=== PATIENT | male | born 1945 | race Caucasian/White ===

== ENCOUNTER 2017-12-26 06:08 | Inpatient (IN) ==
[2017-12-26] MEDS ORDERED: Vancomycin 1,250 MG in D5% in Water 250 ML IVPB ONE (06:25)
[2017-12-26] MEDS ORDERED: Ringers Solution, Lactated 1,000 ML IVC SCH ×2 (06:30→10:12)
--- NOTE | 2017-12-26 07:02 | History & Physical Report ---
Date of Encounter: 12/26/17 Time of Encounter: 07:02 24 Hour HP Update - Instructions Instructions: If the History and Physical is less than 30 days old and was completed prior to A.M. admission and or procedure and has NOT been updated on calendar day of procedure please complete this update prior to performing procedure. - Update Patient reports changes in Medical Condition: No Changes in examination, assessment, or condition: No Changes in Medication: No Preop tests/diagnostics Reviewed: Yes Surgery Remains Indicated: Yes Consent for Planned Operative Procedure(s) Verified: Yes
[2017-12-26] MEDS ORDERED: Pregabalin 75 MG CAPSULE PO ONE (07:06)
[2017-12-26] MEDS ORDERED: Famotidine 20 MG/2 ML VIAL IVP ONE (07:06)
--- NOTE | 2017-12-26 07:10 | Anesthesia Evaluation PreOp ---
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 Other Medical History: Diabetes Type II Anesthesia History: No Prior Anesthetic Complications Alcohol Use: none Drug use: none Medications and Allergies Albuterol Sulfate [Proventil Hfa] 2 puff IH Q4H PRN 08/13/15 [History] Amlodipine [Amlodipine Besylate] 10 mg PO HS 08/13/15 [History] Gabapentin [Neurontin] 600 mg PO BID 08/13/15 [History] Hydrochlorothiazide 25 mg PO DAILY 08/13/15 [History] Lisinopril [Zestril] 20 mg PO DAILY 08/13/15 [History] Metoprolol XL (24 HR) Succ [Toprol XL] 50 mg PO DAILY 08/13/15 [History] Simvastatin [Zocor] 20 mg PO DAILY 08/13/15 [History] Trospium Chloride 20 mg PO HS 08/13/15 [History] Doxazosin Mesylate [Cardura] 2 mg PO DAILY 03/07/17 [History] Esomeprazole Magnesium [Nexium] 40 mg PO DAILY 03/07/17 [History] 3 Allergy/AdvReac Type Severity Reaction Status Date / Time Penicillins AdvReac Hypertensio Verified 12/26/17 07:07 n - Meds/Allergy Pre-op Review Medications Reviewed: Yes Allergies Reviewed: Yes Beta Blockers on Current Med List: Yes (Took Metoprolol last night 1900) Anesthesia Results - Labs Laboratory Tests 03/07/17 12/23/17 12/23/17 13:42 11:55 11:55 Hgb 14.7 POC Hgb 11.5 L Plt Count 175 Sodium 141 Potassium 3.5 BUN 19 Creatinine 1.49 H - Imaging EKG: report reviewed (SR) Additional studies: ECHO LVEF 60% Anesthesia Exam O2 Sat Height 1.68 m Height 1.68 m Height 1.68 m Weight 82.554 kg Weight 82.554 kg Weight 82.554 kg O2 Sat by Pulse Oximetry 99 Vital Signs Temp Pulse Resp BP Pulse Ox 98.0 F 60 18 154/82 99 12/26/17 06:22 12/26/17 06:22 12/26/17 06:22 12/26/17 06:22 12/26/17 06:22 Height: 5'6 Weight: 182 lbs NPO (# of Hours): MN Pain Scale: 0 - HEENT Pupil (Motor): Pupils equal, EOMI Mallampati: II Oral Opening: Greater than 3 - MIXING MACHINE TENDER LOC: Oriented MIXING MACHINE TENDER Motor: Normal RUE, Normal LUE, Normal RLE, Normal LLE, Normal Face MIXING MACHINE TENDER Sensory: Normal: RUE, LUE, RLE, LLE, Face - Cardiac Rhythm: Regular Murmur: None JVD: No Carotid Bruit: No - Pulmonary Breath Sounds: bilateral Clear Respiratory Effort: Symmetrical Anesthesia Assess/Plan ASA Score: 3 (CAD HTN DM) Modified Putnam Scale for Level of Consciousness: Cooperative, oriented, and tranquil Anesthetic Plan: General, Regional Monitoring Plan: Standard Monitors Recovery Plan: PACU (Discussed GA and RA, agrees to proceed)
[2017-12-26] MEDS ORDERED: *HR* Ropivacaine/PF 0.5% 20 ML VIAL ONE (07:25)
[2017-12-26] MEDS ORDERED: Tetracaine/PF 20 MG/2 ML AMPUL ONE (07:25)
[2017-12-26] MEDS ORDERED: Clindamycin 900 MG/50 ML 900 MG/50 ML IV.SOLN IVPB ONE ×2 (07:50→08:32)
--- NOTE | 2017-12-26 08:04 | Anesthesia Procedures ---
Date of Encounter: 12/26/17 Time of Encounter: 07:10 Procedures: Anesthesia - Nerve Block Procedure Date: 12/26/17 Time: 07:30 Pre-op Diagnosis: Rt Shoulder Arthropathy Surgical Procedure: Rt Reverse Ball Total Shoulder Replacement Checklist: Correct Patient Identifier Correct side: Right Blood Thinner: No Monitor Applied: EKG, BP, Pulse Oximetry Supplemental Oxygen via Nasal Cannula (L/min): 2 Sedation: Versed (mg): 2 Sedation: Fentanyl (mcg): 100 Indication: Post Op Analgesia Pre-op Neuro Deficits: No Block Type: Supraclavicular, Other (SCPB) Catheter placed: No Depth at skin (cm): 2 Sterile Technique: Yes Ultrasound used: Yes Anatomy identified: Yes Visual spread of Local: Yes Neuro Stimulation: No Blood on Needle Aspiration: No Smooth Injection of Local: Yes Pain with Injection of Local: No Prep: Chlorhexadine Needle: 22 x 50 mm Stimuplex Local: Tetracaine (40mg), Ropivacaine (40cc 0.5%) Volume (cc): 40 Number of Attempts: 1 Complications: None/effective block Vitals: Vital Signs/O2 Sat/Glucose, Most Current Temp Pulse Resp BP Pulse Ox 12/26/17 07:42 56 18 127/69 97 12/26/17 07:31 83 18 156/69 97 12/26/17 06:22 98.0 F 60 18 154/82 99
[2017-12-26] MEDS ORDERED: Lidocaine -MPF 2% 2 ML VIAL ONE (08:27)
[2017-12-26] MEDS ORDERED: *HR* FentaNYL (PF) 100 MCG/2 ML VIAL ONE (08:27)
[2017-12-26] MEDS ORDERED: Lidocaine -MPF 4% 5 ML AMPUL ONE (08:27)
[2017-12-26] MEDS ORDERED: *HR* Succinylcholine 200 MG/10 ML VIAL IVP ONE (08:27)
[2017-12-26] MEDS ORDERED: Ondansetron 4 MG/2 ML VIAL ONE (08:27)
[2017-12-26] MEDS ORDERED: Dexamethasone 4 MG/ML VIAL ONE (08:27)
[2017-12-26] MEDS ORDERED: *HR* Midazolam HCl 2 MG/2 ML VIAL ONE (08:27)
[2017-12-26] MEDS ORDERED: EPHEDrine 50 MG/ML VIAL ONE (08:27)
[2017-12-26] MEDS ORDERED: *HR* Propofol 200 MG/20 ML VIAL IVP ONE (08:27)
[2017-12-26] MEDS ORDERED: *HR* Rocuronium Bromide 50 MG/5 ML VIAL ONE (08:27)
[2017-12-26] MEDS ORDERED: *HR* Meperidine 25 MG/ML SYRINGE IVP PRN (08:32)
[2017-12-26] MEDS ORDERED: *HR* Labetalol 20 MG/4 ML SYRINGE IVP PRN (08:32)
[2017-12-26] MEDS ORDERED: *HR* Promethazine 25 MG/ML VIAL IVP PRN (08:32)
[2017-12-26] MEDS ORDERED: Ondansetron 4 MG/2 ML VIAL IVP ONE (08:32)
[2017-12-26] MEDS ORDERED: *HR* Metoprolol 5 MG/5 ML VIAL IVP ONE (09:36)
--- NOTE | 2017-12-26 09:43 | Physician Discharge Referral ---
Home Health/Hosp Referral Info Transfer to: Home Health - Respiratory Orders Smoking Cessation: Smoking cessation has been advised. For more information, call the [place] Tobacco Quit Line at 5-833-TWRP-NOW. - Diet/Nutrition Diet/Nutrition Orders: Regular - Activity Activity Orders: Up ad zahira - Services Needed Following services are medically necessary services: Physical Therapy, Occupational Therapy Other Treatments: POST-OPERATIVE INSTRUCTIONS OPEN SHOULDER SURGERY Your recovery after shoulder surgery can take 6-9 months to fully recover. It takes 12 weeks for the repair to fully heal, so it is very important to follow all precautions after surgery as directed. These instructions are intended to help you control swelling and pain, and to allow your shoulder and repaired tissues to heal. These instructions are a general guideline, because no patient or procedure is the same. If needed, your surgeon will give you further specific instructions. SLING You are required to wear your sling at all times (including sleeping) until your follow up appointment. This is necessary to protect your repair. You may remove it to work on your hand, wrist, and elbow exercises, for physical therapy , for getting dressed, and for hygiene. Otherwise, it should remain on at all times. After your follow up appointment, if you are comfortable you may remove the sling. ICE It is recommended to ice your shoulder for 20 minutes per hour using an ice pack, Cryo Cuff if provided, or a bag of frozen peas. Ice can be especially helpful for the first several days after surgery. It can then be used as needed for pain and swelling. PAIN BLOCK/PAIN CATHETER The pain block/catheter is intended for pain relief and can last for up to 48 hours. During this time, you will not experience pain and will not be able to move your hand and fingers. It will give you the sensation of your arm being paralyzed. THIS IS TEMPORARY UNTIL THE BLOCK WEARS OFF. It is recommended that you start your pain medication even though you are getting pain relief from the block. It is more difficult to control the pain once the block wears off, then to keep a constant level of the pain medication in your system. For further questions regarding the pain catheter or block, please refer to the pain pump handout given to you from surgery or contact the anesthesia department as directed in the handout. MEDICATIONS You should resume all of your normal medications after shoulder surgery. If you are on blood thinners, these should be discussed with our team to decide on a date to resume them (typically the day after surgery). You will be given prescriptions for pain medications: o Fill the pain medications immediately and begin taking the medications before your nerve block wears off. You are encouraged to take the pain medications as directed on the prescription, and on a regular schedule for the first 3-4 days after surgery. o Do not let the pain get "ahead" of the pain medications since then it will be very difficult for you to get adequate pain control. o Even with the nerve block from surgery, it is recommended that you start on the pain medications after surgery to avoid the block wearing off without having pain medications in your system. o As the pain decreases, you may decrease the pain medication and switch to extra strength Tylenol if needed. o Avoid driving and consuming alcohol while taking pain medication. o Common side effects of pain medication are nausea, drowsiness, and constipation. Consider taking medication with food, and also consider using an [id number] stool softener. DRESSING You may shower and get your dressing wet 3 days after surgery, as long as there is no drainage coming from the incision. If the dressing is leaking, remove it and apply a clean, dry gauze to your shoulder. Avoid letting the shower stream hit the incisions directly. DO NOT scrub incisions or soak under water (bathtub, swimming pool or hot tub etc.) Pat the shoulder dry and then re-apply the dressing. If you have drainage more than 5 days after surgery, please contact our office for advice. SLEEPING You may find it more comfortable to sleep in a semi-reclined position (ie. recliner type chair or propped up on pillows) following shoulder surgery. You may return to sleeping in your bed whenever it feels comfortable to do so. EXERCISES You may come out of your sling 3-4 times/day to move your elbow, wrist, and hand and fingers and do shoulder exercises provided. Remember no reaching behind you for 6 weeks. FOLLOW UP APPOINTMENTS Your first follow up appointment is generally 10-14 days after surgery. Please refer to your preoperative packet for the date and time or contact the office after surgery to confirm this appointment. Wound care, pain management, and a review of your surgical procedure will be discussed at your first post-operative appointment Additional appointments are scheduled according to the type of surgery that you had and how you are progressing. PRECAUTIONS After anesthesia, rest for 24 hours. General anesthesia may cause a sore throat, jaw discomfort or muscle aches. These symptoms can last for one or two days. Do not drive, drink alcoholic beverages or make any important or legal decisions during this time. Avoid placing arm behind back (tucking in shirt, putting on belt), and do not lean on affected arm or use arm to push up from a seated or laying position. A good general rule is to keep your arm where you can see it. Keep your first few meals after surgery light and drink plenty of fluids, and some people are nauseas after surgery. Smoking increases your risk of infection and can delay healing times. If you smoke, you are encouraged to quit, cut back or at least quit smoking during the post-operative period. Pain medications are important for the first few days after surgery to treat postoperative pain. Addiction, tolerance, and side effects are a big concern. Decrease the pain medications as soon as you can. This is typically after the first few days. Most patients require narcotic pain medications only for the first few weeks after surgery (even large procedures). Prolonged use increases the risk of problems with these medications. NOTIFY THE OFFICE IMMEDIATELY, IF YOU DEVELOP ANY OF THE FOLLOWING: Increased redness or swelling over the incision area Incision area is warm or hot to touch Incision has foul smelling drainage Relentless pain, nausea, vomiting, bleeding or drainage Severe calf pain or chest pain You develop a fever greater than 101.4 more than 48 hours after surgery If you having an emergency that requires immediate attention go to the nearest emergency room or call 911. Please contact the office with any other questions or concerns that you may have regarding your surgery. - Transfer Medications Home Medications: Albuterol Sulfate [Proventil Hfa] 2 puff IH Q4H PRN 08/13/15 [History] Gabapentin [Neurontin] 600 mg PO BID 08/13/15 [History] Hydrochlorothiazide 25 mg PO DAILY 08/13/15 [History] Simvastatin [Zocor] 20 mg PO HS 08/13/15 [History] Trospium Chloride 20 mg PO HS 08/13/15 [History] Doxazosin Mesylate [Cardura] 2 mg PO HS 03/07/17 [History] Cholecalciferol (D-3) [Vitamin D] 5,000 unit PO DAILY 12/26/17 [History] Lisinopril [Zestril] 10 mg PO DAILY 12/26/17 [History] Metoprolol Succinate [Toprol Xl] 25 mg PO HS 12/26/17 [History] OxyCODONE/APAP 5/325 [Percocet 5/325 MG] 1 each PO Q6HR PRN 12/26/17 [History] Ranitidine HCl [Zantac] 150 mg PO BID PRN 12/26/17 [History] amLODIPine [Norvasc] 5 mg PO DAILY 12/26/17 [History] Allergies/Adverse Reactions: 3 Allergy/AdvReac Type Severity Reaction Status Date / Time Penicillins AdvReac Hypertensio Verified 12/26/17 07:07 n Certification: Further, I certify that my clinical findings support that this patient is homebound (i.e. absences from home require considerable and taxing effort and are for medical reasons or voodoo services or infrequently or short duration when for other reasons) because: Homebound Reason: Patient requires assistance of a person or device to safely leave home Attestation: My signature below is to certify that this patient is under my care and that I, or nurse practitioner, or a physician's assistant boys track coach working with me, has a face-to -face encounter with this patient.
--- NOTE | 2017-12-26 09:48 | Orthopedic Operative Note ---
Date of procedure: 12/26/17 Pre-op diagnosis: Right shoulder cuff tear arthropathy Post-op diagnosis: same Procedure: 1. Right reverse TSA with autograft glenoid bone graft 2. Right open biceps tenodesis Indications: This is a 72 yo M who has long history of right shoulder pain with arthritis and cuff tear arthropathy confirmed on radiographs. The patient has failed conservative treatment including anti-inflammatories therapy and injections. The patient has elected for a right reverse shoulder replacement. The risks and benefits of the procedure were fully explained to the patient. These risks include, but are not limited to, the risk of infection, neurovascular injury, continued pain and stiffness of the shoulder, need for further surgery, DVT, PE, loss of limb and loss of life. The patient did understand all of these risks and wishes to proceed. Informed consent was then obtained. Operative procedure: The patient was brought back to the OR suite by the anesthesia staff. The patient was then placed supine on the operating table and all bony prominences were padded. The anesthesiologist then performed successful general anesthetic for the remainder of the case. The head, neck and airway were secured and protected by anesthesia. The bed was elevated about 30 degrees. The right upper extremity was then prepped and draped in the normal sterile orthopedic fashion and placed in the Trimano arm whitt. Preoperative antibiotics were then given prior to incision. A timeout was performed confirming the correct patient, site and side, procedure to be performed and any allergies. All were in agree and we did proceed. A standard deltopectoral approach was performed. We dissected down through the skin coagulating any bleeders were encountered. The cephalic vein was then identified and taken laterally with the deltoid. Adhesions were cleared from underneath the deltoid and a brown retractor was placed. The interval between the deltoid and pectoralis was then developed and kolbel retractor was placed. A Darrach retractor was then placed under the acromion. The biceps tendon was exposed and identified, and then released proximally. Soft tissue tenodesis of the remaining biceps was then performed. The lateral border of the conjoined tendon was then identified and a subscapularis release was performed. The subscapularis was tagged for retraction and was released from the rotator interval down the anterior aspect of the humerus. The capsule was then released from the anterior aspect of the humerus around inferiorly to the back of the humerus. The humerus was subluxed anteriorly and any osteophytes were removed. The supraspinatus was not intact. A guide pin was placed in the center of the humeral head, this was reamed flat and then a circular reamer was used to obtain bone graft for the glenoid. A humeral osteotomy was then performed, and the humerus was sounded and broached to the appropriate size 4. Attention was then turned to the glenoid. The humerus was subluxed posteriorly and retractors were placed on the anterior and posterior aspects of the glenoid. A 360 degree release of the subscapularis was performed, and the axillary nerve was palpated and protected throughout the case. Labral debridement was then performed. There was significant superior wear as noted on the CT scan. A central guide pin was placed in the appropriate position on the glenoid. Central drill hole was drilled and the glenoid was then reamed in accordance with the aequalis reverse shoulder system. The bone autograft was then fashioned to provide 7 mm of superior bone graft and 3 mm inferior bone graft on the back side of the glenoid baseplate. The glenoid baseplate was impacted in place and 4 peripheral drill holes were drilled and filled with the appropriate length screws, 2 in compression, 2 locking. The final glenosphere was then impacted and the glenoid sphere screw was tightened in place. Attention was turned back to the humerus. The humerus was subluxed back anteriorly and a trial humeral stem, tray and poly trials were placed. Trial humeral reverse trays and poly were then placed sequentially until the most appropriate size was identified. The trial size +9 poly was tested and had excellent range of motion, and stability was verified. The final component was assembled on the back table and then inserted, and the shoulder was reduced. Again the shoulder was taken through range of motion and there was excellent range of motion and stability. The wound was then copiously irrigated. The deltopectoral interval was tagged with 2-0 surgilon, and the incision was closed with 2-0 stratafix deep and a running 3-0 stratafix subcuticular. Sterile dressing was placed, the arm was placed in a sling and the patient was taken to the PACU in stable condition. There were no complications during the case. Post op plan: The patient will go into the reverse shoulder protocol. Implants: Tornier aequalis flex 4B PTC stem low offset +0 tray, 39+9 mm poly 25 mm long post bio RSA baseplate 39x25 glenosphere Complications: none Anesthesia: GETA, regional Surgeon: Eliazar Mayo Was there an resident assistant cna present: No Estimated blood loss (cc): 100 Condition: stable Disposition: PACU
--- NOTE | 2017-12-26 09:52 | Anesthesia Evaluation Post Op ---
Date of Encounter: 12/26/17 Time of Encounter: 10:00 - Vital Signs Vital Signs: Vital Signs/O2 Sat/Glucose, Most Current Temp Pulse Resp BP Pulse Ox 12/26/17 07:42 56 18 127/69 97 12/26/17 07:31 83 18 156/69 97 12/26/17 06:22 98.0 F 60 18 154/82 99 - Lungs Lungs: Clear Ascult./Percussion - Airway Airway: Non-obstructed - Cardiovascular Regular Rate - Mental Status Mental Status: Alert & Oriented, Answers Appropriately - Pain Pain Scale: 0 - Nausea Vomiting Nausea Vomiting: Not Present - Hydration Hydration: Ice chips - Discharge PostOp Status: Transfer Patient to floor
[2017-12-26] MEDS ORDERED: Acetaminophen 325 MG TABLET PO PRN (10:12)
[2017-12-26] MEDS ORDERED: Famotidine 20 MG TABLET PO SCH (10:12)
[2017-12-26] MEDS ORDERED: Ketorolac 15 MG/ML VIAL IVP PRN (10:12)
[2017-12-26] MEDS ORDERED: Naloxone 0.4 MG/ML INJ IVP PRN (10:12)
[2017-12-26] MEDS ORDERED: MOM Conc 10 ML UD.LIQ PO PRN (10:12)
[2017-12-26] MEDS ORDERED: *HR* OxyCODONE Immed Rel 5 MG TABLET PO PRN (10:12)
[2017-12-26] MEDS ORDERED: *HR* HYDROcodone/Acet 5/325 mg TABLET PO PRN (10:12)
[2017-12-26] MEDS ORDERED: Ondansetron 4 MG/2 ML VIAL IVP PRN (10:12)
[2017-12-26] MEDS ORDERED: Sennosides 8.6 MG TABLET PO PRN (10:12)
[2017-12-26] MEDS ORDERED: Temazepam 15 MG CAPSULE PO PRN (10:12)
[2017-12-26 12:49] VITALS: BP 124/77
[2017-12-26] MEDS ORDERED: Clindamycin 900 MG/50 ML 900 MG/50 ML IV.SOLN IVPB SCH (16:00)
[2017-12-26] MEDS ORDERED: Metoprolol XL (24 HR) Succ 25 MG TAB.ER.24H PO SCH (21:00)
[2017-12-26] MEDS ORDERED: Gabapentin 300 MG CAPSULE PO SCH (21:00)
[2017-12-27] MEDS ORDERED: hydroCHLOROthiazide 25 MG TABLET PO SCH (09:00)
[2017-12-27] MEDS ORDERED: amLODIPine 5 MG TABLET PO SCH (09:00)
[2017-12-27] MEDS ORDERED: Cholecalciferol (D-3) 1,000 UNIT TABLET PO SCH (09:00)
--- NOTE | 2018-01-01 17:19 | Discharge Summary ---
Date of Encounter: 01/01/18 Time of Encounter: 17:18 - Discharge Medications Home Medications: Albuterol Sulfate [Proventil Hfa] 2 puff IH Q4H PRN 08/13/15 [History] Gabapentin [Neurontin] 600 mg PO BID 08/13/15 [History] Hydrochlorothiazide 25 mg PO DAILY 08/13/15 [History] Simvastatin [Zocor] 20 mg PO HS 08/13/15 [History] Trospium Chloride 20 mg PO HS 08/13/15 [History] Doxazosin Mesylate [Cardura] 2 mg PO HS 03/07/17 [History] Cholecalciferol (D-3) [Vitamin D] 5,000 unit PO DAILY 12/26/17 [History] Lisinopril [Zestril] 10 mg PO DAILY 12/26/17 [History] Metoprolol Succinate [Toprol Xl] 25 mg PO HS 12/26/17 [History] OxyCODONE/APAP 5/325 [Percocet 5/325 MG] 1 each PO Q6HR PRN 12/26/17 [History] Ranitidine HCl [Zantac] 150 mg PO BID PRN 12/26/17 [History] amLODIPine [Norvasc] 5 mg PO DAILY 12/26/17 [History] Allergies/Adverse Reactions: 3 Allergy/AdvReac Type Severity Reaction Status Date / Time Penicillins AdvReac Hypertensio Verified 12/26/17 07:07 n - Impressions ITS Impressions Shoulder X-Ray 12/26/17 09:35 IMPRESSION: 1. Status post right shoulder arthroplasty without immediate complication. D/ / 12/26/2017 10:26:30 Shania Valentin MD / [email or web address] Interpreting Provider: Shania Valentin MD Date of admission: 12/26/17 10:11 Primary care physician: Su Lanier, Consults: 12/26/17 10:12 Consult to Occupational Therapy [CONS] Routine Comment: post shoulder surgery Reason for Consult: post shoulder surgery Consult to Orthopedic Navigator [CONS] [CONS] Routine Consult to Physical Therapy [CONS] Routine Comment: post shoulder surgery Reason for Consult: post shoulder surgery RT Post Op Consult [CONS] Routine - Patient Status Disposition: Home, Self-Care Condition: Good Functional capacity at discharge: independent ambulation Overall status at discharge: patient is progressing back to baseline - Discharge Instructions Follow Up With: Su Lanier CNP [Primary Care Provider] - Eliazar Mayo MD [Non-Partnered Physician] - 01/07/18 2:30 pm Additional Instructions: Discharge Instructions: Total Shoulder Please call [facility] ([phone]), your Primary Care Physician, or report to the Emergency Room if you have any of the following symptoms: Nausea, vomiting, fever greater that 101.5, swelling, chest pain, shortness of breath, increased pain/redness/drainage/odor for your incision site, numbness/ tingling, or any other concerning symptoms. ACTIVITY: Always keep your arm in the sling. Do not raise your arm away from your body. Do not use your arm to help with getting in or out of bed. No weight bearing permitted. Only perform those exercises given to you by your therapist. MEDICATIONS: Upon discharge resume your home medications. Take all the medications as prescribed. Take a stool softener if taking narcotic pain medications. Stool softeners are only effective if you drink enough fluids. Drink 6-8 glass of water or fluids a day, unless this is not allowed for another health problem. Despite using stool softeners, if you haven't had a bowel movement in 3 days, please switch to a gentle laxative. Gentle laxatives are sold over the counter. You should have a bowel movement within 24 hours, if not call the office. You will be discharged from the hospital with a prescription for pain medication. You are encouraged to decrease the use of narcotic pain medication as tolerated. Should you require a refill, please call the office. [facility] prescribes narcotic pain medication for only 4-6 weeks after surgery. If you require pain medication beyond this time period, you may be referred to your Primary Care Physician or to the Pain Clinic for further evaluation. Plan ahead for refills on pain medication as many narcotics either need to be picked up at the office or mailed. It is best to call 48-72 hours in advance of needing a prescription refill so you don't run out of medication. To help control the post-operative pain, you may take NSAIDs (Aleve,Advil, Motrin, Ibuprofen, Naprosyn) or Tylenol as prescribed on the bottle in addition to the pain medication. WOUND CARE: Leave the dressing on for 7-10 days. You may change the dressing if it becomes saturated greater than 50%. Do not get the dressing wet at anytime. Wash your hands with antibacterial soap, rinse and dry prior to any wound care. If you have juan diego the visiting nurse or rehab facility can remove the stapes 10-14 days after surgery and place steri-strips across the wound. Leave the steri-strips in place until they fall off on their own. You may let water from the shower run on top of the steri-strips. If you do not have a visiting nurse or rehab facility, you will need to return to the office at 10-14 days for the juan diego to be removed. If you have itching or redness around the dressing call the office. FOLLOW-UP: Please follow up with your surgeon in the orthopedic clinic, as scheduled - Diet and Activity Activity: as per physical therapy Diet: advance to your usual diet - Hospital Course Hospital course: Mr. Kramer is a 72 year old male admitted to the floor following a right reverse TSA. He did well post op with pain well controlled and after being seen by PT was discharged home same day. - Time Spent with Patient Total time spent providing and/or coordinating discharge services: - VTE Documentation of Mechanical Device: Venous foot pump, device
== END 2017-12-26 16:57 | disposition home or self-care (01) | DRG 483 ==
LOC: SAMDAY 06:08 → 3NENU 10:11
PROVIDERS: ADMIT Orthopaedic Surgery Sports Medicine; ATTEND Orthopaedic Surgery Sports Medicine

== ENCOUNTER 2018-08-09 10:54 | Observation (INO) ==
[2018-08-09] MEDS ORDERED: Aspirin 81 MG TAB.CHEW PO STA (11:19)
--- NOTE | 2018-08-09 11:22 | Emergency Department Note ---
Disposition Clinical Impression: Unstable angina Disposition: Admitted As Inpatient Condition: Fair Referrals: Su Lanier [Primary Care Provider] - Forms: ED Satisfaction Letter Time of Disposition: 12:26 General Adult HPI - General Chief complaint: ED Chest Pain Stated complaint: chest pain Time Seen by Provider: 08/09/18 11:03 Source: patient Mode of arrival: ambulatory Limitations: no limitations Nursing Notes Reviewed: Yes Vital Signs Reviewed: Yes - History of Present Illness HPI Narrative: Patient is a 73-year-old male with past medical history of quadruple bypass, hypertension presents to the emergency department for evaluation of left-sided chest pain that is pressure-like starting approximately 3 hours prior to arrival and constant worse with exertion and associated with dyspnea. Denies nausea. Pain does radiate into his left arm. The patient states that he had similar pain a week ago and was seen at a different ER in which she was discharged home and had a stress test done this past Friday which they told him not to perform any strenuous activity and he was made an appointment with a nursing program coordinator. Patient states that he was showering when the chest pain came on. Pain Scale: 7 - Related Data Home Medications Medication Instructions Recorded Confirmed Doxazosin Mesylate [Cardura] 2 mg PO HS 03/07/17 08/09/18 Cholecalciferol (D-3) [Vitamin D] 5,000 unit PO DAILY 12/26/17 08/09/18 Lisinopril [Zestril] 20 mg PO DAILY 12/26/17 08/09/18 Metoprolol Succinate [Toprol Xl] 12.5 mg PO DAILY 12/26/17 08/09/18 Aspirin Enteric Coated [Aspirin EC] 81 mg PO DAILY 08/09/18 08/09/18 Ranitidine HCl [Acid Wooden Tank Erector] 150 mg PO BID 08/09/18 08/09/18 Simvastatin [Zocor] 20 mg PO HS 08/09/18 08/09/18 Tizanidine HCl 4 mg PO BID PRN 08/09/18 08/09/18 Allergies Allergy/AdvReac Type Severity Reaction Status Date / Time Penicillins AdvReac Hypertensio Verified 12/26/17 07:07 n All systems ED: reviewed and negative except as stated. Review of Systems: As Per HPI Constitutional: Denies: fever, chills Cardiovascular: Reports: chest pain, dyspnea on exertion. Denies: palpitations , orthopnea, edema, syncope, paroxysmal nocturnal dyspnea Respiratory: Reports: dyspnea. Denies: cough, wheezes, hemoptysis, sputum production Gastrointestinal: Denies: abdominal pain, nausea, vomiting Musculoskeletal: Denies: back pain, neck pain Past Medical History - Past Medical History Attestation: Yes The following information was validated with the patient. Medical history: Reports: COPD, coronary artery disease, hyperlipidemia, hypertension, renal disease, other Surgical history: Reports: appendectomy, coronary bypass (CABG) Psychiatric history: Reports: no psych history - Social History Smoking Status: Never smoker Smokeless Tobacco Status: No Alcohol use: Reports: none Drug use: Reports: none Physical Exam CONSTITUTIONAL: Well-appearing; well-nourished; A&O X 3, in no apparent distress. Hypertensive. Otherwise vitals within normal limits. HEAD: Normocephalic; atraumatic EYES: PERRL, no scleral icterus NOSE: The nose is normal in appearance without rhinorrhea NECK: No JVD or distended neck veins RESP: Normal chest excursion with respiration; breath sounds clear and equal bilaterally; no wheezes, rhonchi, or rales CARD: Regular rhythm, without murmurs, rub or gallop ABD: Non-distended; non-tender, soft, without rigidity, rebound or guarding,no pulsatile mass CHEST: No pain with palpation. Scar in midline consistent with prior CABG. SKIN: Normal for age and race; warm and dry without diaphoresis ; no apparent lesions EXTREMITIES: Pulses are 2 plus and equal times 4 extremities, no peripheral edema or calf muscle pain Course Course Narrative: Discussed with the patient that given his history of CABG and recent hospital visit for chest pain plan is times to evaluate him for a cardiac chest pain. On exam he does have high blood pressure which she states they have been struggling to control at this time. Discussed with the patient plan at this time is to undergo EKG, troponin, chest x-ray as well as basic labs to evaluate for cardiac cause of pain. We will trial sublingual nitroglycerin which hopefully will help improve the patient's blood pressure as well as decreasing his chest pain. He also receive a full dose of aspirin. He states that he does not take aspirin daily due to history of GI bleeds. He does not require additional oxygen, the nurse applied the oxygen for comfort, his saturation was 100% on RA. - Reevaluation(s) Reevaluation #1: Discussed with the patient plan at this time is to admit him to the hospital. Discussed his lab work at this time is unremarkable as EKG does not show any significant aches ST elevation or depression. Discussed that due to his recent stress test that was returned indeterminate at the plan at this time is for the patient to be admitted for a full cardiac workup and considered for a catheterization given that he has unstable angina. The patient states that his symptoms have completely resolved with the second dose of nitroglycerin. His blood pressure has improved to 163/92. Dr. Mcgee accepts the patient. Time: 12:26 Vital Signs Temperature 97.4 F L 08/09/18 11:01 Pulse Rate 65 08/09/18 11:01 Respiratory Rate 18 08/09/18 11:01 Blood Pressure 217/100 08/09/18 11:01 O2 Sat by Pulse Oximetry 98 08/09/18 11:01 Temperature 97.8 F 08/09/18 11:19 Pulse Rate 73 08/09/18 11:44 Respiratory Rate 18 08/09/18 11:40 Blood Pressure 193/108 08/09/18 11:47 O2 Sat by Pulse Oximetry 2 08/09/18 11:40 Oxygen Delivery Oxygen Delivery Nasal Cannula Medical Decision Making - Medical Records Medical records reviewed: Yes I reviewed the patient's medical records. - Lab Data Lab results reviewed: Yes I reviewed the patient's lab results. Result diagrams: 08/09/18 11:29 08/09/18 11:29 Lab Results 08/09/18 08/09/18 08/09/18 Range/Units 11:29 11:29 11:29 WBC 6.0 (4.3-11.1) K/mcL RBC 4.90 (4.19-5.50) M/mcL Hgb 14.7 (12.9-16.9) g/dL Hct 41.8 (37.5-50.1) % MCV 85.3 (83.0-100.0) fL MCH 30.0 (28.0-33.3) pg MCHC 35.2 (31.6-35.5) g/dL RDW 13.1 (11.5-14.5) % Plt Count 161 (140-400) K/mcL MPV 10.7 (9.4-12.4) fL Immature Gran % 0.2 (0-4) % Seg Neutrophils % 65.3 % Lymphocytes % 23.7 % Monocytes % 6.2 % Eosinophils % 3.4 % Basophils % 1.2 % Neutrophils # 3.9 (1.6-8.9) K/mcL Lymphocytes # 1.4 (0.6-4.6) K/mcL Monocytes # 0.4 (0.0-1.3) K/mcL Eosinophils # 0.2 (0.0-0.6) K/mcL Basophils # 0.1 (0.0-0.2) K/mcL PT 11.4 (9.4-12.1) Seconds INR 1.0 APTT 32.6 (26.0-36.0) Seconds Sodium (136-145) mEq/L Potassium (3.5-5.1) mEq/L Chloride (98-107) mEq/L Carbon Dioxide (23-29) mEq/L BUN (8-23) mg/dL Creatinine (0.70-1.30) mg/dL Est GFR ( Amer) (> 60) Est GFR (Non-Af Amer) (> 60) BUN/Creatinine Ratio (6-26) Glucose (70-105) mg/dL Calculated Osmolality (280-300) Calcium (8.6-10.3) mg/dL Troponin I (< 0.04) ng/mL B-Natriuretic Peptide 183 H (Less than 100) pg/mL 08/09/18 Range/Units 11:29 WBC (4.3-11.1) K/mcL RBC (4.19-5.50) M/mcL Hgb (12.9-16.9) g/dL Hct (37.5-50.1) % MCV (83.0-100.0) fL MCH (28.0-33.3) pg MCHC (31.6-35.5) g/dL RDW (11.5-14.5) % Plt Count (140-400) K/mcL MPV (9.4-12.4) fL Immature Gran % (0-4) % Seg Neutrophils % % Lymphocytes % % Monocytes % % Eosinophils % % Basophils % % Neutrophils # (1.6-8.9) K/mcL Lymphocytes # (0.6-4.6) K/mcL Monocytes # (0.0-1.3) K/mcL Eosinophils # (0.0-0.6) K/mcL Basophils # (0.0-0.2) K/mcL PT (9.4-12.1) Seconds INR APTT (26.0-36.0) Seconds Sodium 140 (136-145) mEq/L Potassium 3.2 L (3.5-5.1) mEq/L Chloride 105 (98-107) mEq/L Carbon Dioxide 27 (23-29) mEq/L BUN 15 (8-23) mg/dL Creatinine 1.63 H (0.70-1.30) mg/dL Est GFR ( Amer) 51 L (> 60) Est GFR (Non-Af Amer) 42 L (> 60) BUN/Creatinine Ratio 9 (6-26) Glucose 136 H (70-105) mg/dL Calculated Osmolality 293 (280-300) Calcium 9.2 (8.6-10.3) mg/dL Troponin I < 0.03 (< 0.04) ng/mL B-Natriuretic Peptide (Less than 100) pg/mL - Radiology Data Radiology results reviewed: Yes I reviewed the patient's radiology results. Chest X-Ray 08/09/18 11:04 IMPRESSION: No acute finding or interval change. D/ / Devonte Gibson MD / Devonte Gibson MD Interpreting Provider: Devonte Gibson MD - EKG Data EKG #1 EKG attestation: Yes I reviewed and interpreted this EKG. EKG results narrative: EKG done 11:13 shows sinus rhythm at a rate of 60 bpm. Normal axis. Intervals within normal limits. No signs of ST elevation, ST depression, inverted T waves patient does have Q waves present in lead 3 that are isolated in present on prior EKG but appeared to be increased on this EKG. Attestation Statement - Attestation Attestation: Patient was seen with resident physician. I reviewed the history, physical, assessment and plan, and agree with the findings. I also personally evaluated this patient and had [id number] time with this patient. 73-year-old male presents to Department chief complaint of chest pain. Patient has a history of CABG he says in 2008. He said the pain is similar to what he presented for that surgery. Says he never really had a heart attack. He had a stress test last week he was told not to perform any strenuous activities but did not get any additional results of the stress test. He said the pain started approximately 3 hours prior to arrival to counts include [facility] beds at the [facility] at a pressure sensation nonradiating. It is associated with shortness of breath no diaphoresis. It is worse with exertion. No nausea vomiting or diarrhea. Denies other complaints. Review of systems as above remainder negative. Physical exam vital signs hypertensive heart rates okay. ENT is unremarkable. Heart regular rhythm and rate. Lungs clear. Abdomen soft nontender. Extremities unremarkable. Neurologically intact. Skin no rashes. Psych normal. ED course EKG showed some Q waves which are little bit worse than they were at a prior EKG but there is no acute ST segment changes. We will do a chest x-ray lab testing and then we will admit the patient for evaluation treatment for chest pain. We will also give the patient aspirin and nitroglycerin as he is not taken aspirin today and I think the mitral also help with his pain and his blood pressure. Hemodynamically he remained stable while in the emergency department. I agree with resident physician assessment and plan.
[2018-08-09] MEDS: Nitroglycerin 0.4 MG TAB.SUBL SL PRN ×2 (11:34→11:42)
[2018-08-09 11:47] LABS: Basophils # 0.1 K/mcL (0.0-0.2); Basophils % 1.2 %; Eosinophils # 0.2 K/mcL (0.0-0.6); Eosinophils % 3.4 %; Hematocrit 41.8 % (37.5-50.1); Hemoglobin 14.7 g/dL (12.9-16.9); Immature Granulocytes % 0.2 % (0-4); Lymphocytes # 1.4 K/mcL (0.6-4.6); Lymphocytes % 23.7 %; Mean Corpuscular HGB Conc 35.2 g/dL (31.6-35.5); Mean Corpuscular Volume 85.3 fL (83.0-100.0); Mean Platelet Volume 10.7 fL (9.4-12.4); Monocytes # 0.4 K/mcL (0.0-1.3); Monocytes % 6.2 %; Neutrophils # 3.9 K/mcL (1.6-8.9); Platelet Count 161 K/mcL (140-400); Red Cell Distribution Width 13.1 % (11.5-14.5); Segmented Neutrophils % 65.3 %
[2018-08-09 11:52] LABS: Prothrombin Time 11.4 Seconds (9.4-12.1)
[2018-08-09 11:55] LABS: Activated Partial Thrombo Time 32.6 Seconds (26.0-36.0)
[2018-08-09 12:15] LABS: BUN/Creatinine Ratio 9 (6-26); Blood Urea Nitrogen 15 mg/dL (8-23); Calcium 9.2 mg/dL (8.6-10.3); Carbon Dioxide 27 mEq/L (23-29); Chloride 105 mEq/L (98-107); Glucose 136 mg/dL (70-105); Osmolality,Calculated 293 (280-300); Potassium 3.2 mEq/L (3.5-5.1); Sodium 140 mEq/L (136-145); eGFR For Non-African Americans 42 (> 60)
[2018-08-09 12:16] LABS: Troponin I < 0.03 ng/mL (< 0.04)
[2018-08-09] MEDS ORDERED: Naloxone 0.4 MG/ML INJ IVP PRN (15:11)
[2018-08-09] MEDS ORDERED: tiZANidine 4 MG TABLET PO PRN (15:16)
--- NOTE | 2018-08-09 18:02 | Internal Med History&Physical ---
Date of Encounter: 08/09/18 Time of Encounter: 17:57 Internal Medicine - H&P: HPI Chief complaint: chest pain. Admitted From: Home Plans for Post Hospital Care: Home History of present illness: Mr. Kramer is a 73 year old male with past medical history of quadruple bypass , hypertension presents to the emergency department with CP. Pt states he developed left-sided chest pain that is pressure-like while he was showering. Pain started approximately 3 hours prior to arrival to ED, was constant, worse with exertion, and associated with dyspnea. Pain does radiate into his left arm , neck or jaw. He reports SOB and diaphoresis but denies nausea. The patient states that he had similar pain a week ago. He had stress test done at [place] this past Friday which was read as indeterminate. He was made an appointment with a ammunition assembly ii laborer for 08/14/2017 at discharge. Pain relieved by Nitro. Pain Scale: 7 in ED. Troponin <0.03. EKG SR with VR 60. Chest X-Ray 08/09/18 11:04 IMPRESSION: No acute finding or interval change. Past Med Surg Social Fam HX - Past Medical History Medical history: COPD, coronary artery disease, hyperlipidemia, hypertension, renal disease, other Psychiatric history: no psych history - Past Surgical History Surgical History: appendectomy, coronary bypass (CABG) Additional surgical history: right index finger missing. - Social History Smoking Status: Never smoker Smokeless Tobacco Status: No Alcohol use: none Drug use: none - Family History Mother Living Status: Age at : 84 Cause of : Dementia Hx Family Cardiac Disorders: No Hx Family Respiratory Disorders: No Hx Family Cancer: No Hx Family GI Disorders: No Hx Family Genitourinary Disorders: No Hx Family Endocrine Disorder: Yes (DM) Hx Family Musculoskeletal Disorders: No Hx Family Neuromuscular Disorders: No Hx Family Neurologic Disorders: Yes (dementia) Hx Family HEENT Disorders: No Hx Family Autoimmune Disorders: No Hx Family Reproductive Disorders: No Hx Family Psychosocial Disorders: No Hx Family Medical Disorders: No Father Living Status: Age at : 66 Cause of : [place] Hx Family Cardiac Disorders: Yes (stroke) Hx Family Respiratory Disorders: No Hx Family Cancer: No Hx Family GI Disorders: No Hx Family Genitourinary Disorders: No Hx Family Endocrine Disorder: Yes (DM) Hx Family Musculoskeletal Disorders: No Hx Family Neuromuscular Disorders: No Hx Family Neurologic Disorders: No Hx Family HEENT Disorders: No Hx Family Autoimmune Disorders: No Hx Family Reproductive Disorders: No Hx Family Psychosocial Disorders: No Son Living Status: Age at : 26 Cause of : [place] Hx Family Cardiac Disorders: Yes Hx Family Respiratory Disorders: No Hx Family Cancer: No Hx Family GI Disorders: No Hx Family Genitourinary Disorders: No Hx Family Endocrine Disorder: No Hx Family Musculoskeletal Disorders: No Hx Family Neuromuscular Disorders: No Hx Family Neurologic Disorders: No Hx Family HEENT Disorders: No Hx Family Autoimmune Disorders: No Hx Family Reproductive Disorders: No Hx Family Psychosocial Disorders: No Hx Family Medical Disorders: No Internal Medicine - H&P: Meds Doxazosin Mesylate [Cardura] 2 mg PO HS 03/07/17 [History] Cholecalciferol (D-3) [Vitamin D] 5,000 unit PO DAILY 12/26/17 [History] Lisinopril [Zestril] 20 mg PO DAILY 12/26/17 [History] Metoprolol Succinate [Toprol Xl] 12.5 mg PO DAILY 12/26/17 [History] Aspirin Enteric Coated [Aspirin EC] 81 mg PO DAILY 08/09/18 [History] OxyCODONE/APAP 5/325 [Percocet 5/325 MG] 1 each PO Q6HR PRN 08/09/18 [History] Ranitidine HCl [Acid Liquid Floor And Wall Applier] 150 mg PO BID 08/09/18 [History] Simvastatin [Zocor] 20 mg PO HS 08/09/18 [History] Tizanidine HCl 4 mg PO BID PRN 08/09/18 [History] 3 Allergy/AdvReac Type Severity Reaction Status Date / Time Penicillins AdvReac Hypertensio Verified 12/26/17 07:07 n All Systems PM: A 10-system review of systems was performed and is negative for pertinent findings except as documented above in the HPI. - Constitutional Vitals: Temp Pulse Resp BP Pulse Ox 97.8 F 52 16 165/79 100 08/09/18 14:55 08/09/18 14:55 08/09/18 14:55 08/09/18 14:55 08/09/18 14:55 General appearance: Present: A&O X 3, no acute distress Exam: . - Head Head exam: Present: atraumatic, normocephalic - Eye Eye exam: Present: PERRL, conjuntiva pink, sclera anicteric Pupils: Present: PERRL - Neck Neck exam general surgery: Present: supple, trachea midline. Absent: lymphadenopathy - Respiratory Respiratory exam: Present: CTAB. Absent: accessory muscle use, rales, rhonchi, wheezes - Cardiovascular Cardiovascular exam: Present: RRR, +S1, +S2. Absent: diastolic murmur, gallop, rubs, systolic murmur - GI/Abdominal GI/Abdominal exam: Present: normal bowel sounds, soft, no peritoneal signs. Absent: distended, tenderness - Extremities Exam Extremities exam: Present: warm, radial pulses palpable and symmetrical. Absent : calf tenderness, cyanotic, pedal edema - Neurological Exam Neurological exam: Present: CN II-XII intact, oriented X3, no focal deficits. Absent: pronater drift, facial droop, speech deficit - Skin Skin exam: Present: dry, intact Internal Med - H&P Results - Labs CBC & Chem 7: 08/09/18 11:29 08/09/18 11:29 Labs: Cardiac Enzymes 08/09/18 Range/Units 16:51 Troponin I < 0.03 (< 0.04) ng/mL - Assessment and plan (1) Chest pain Current Visit: Yes Status: Acute Assessment and plan: ? unstable angina vs uncontrolled HTN. Pt is s/p CBAG. Will cycle troponin. Pt recently had stress test 08/07/2018. Pt states he does not currently ahve a primary ammunition assembly ii laborer and had been set up on an appointment to see one this upcoming Fri08/14/2018. He denies CP at this time. States his BP was 200/ 105 at home. States this is similar to event he had prior to CABG. Will consult cardiology in am due to persistent symptoms and significant cardiac history. Stress test Impressions: Stress ECG was indeterminate for ischemia due to baseline ST abnormalities. Hypertensive blood pressure response to exercise. Test terminated due to dyspnea. No complaints of chest pain. Qualifiers: Qualified Code(s): R07.9 - Chest pain, unspecified (2) CAD (coronary artery disease) Current Visit: No Status: Acute Assessment and plan: ASA and Zocor. s/p CABG Qualifiers: Qualified Code(s): I25.10 - Atherosclerotic heart disease of [place] coronary artery without angina pectoris (3) CKD (chronic kidney disease), stage III Current Visit: No Status: Acute Assessment and plan: Will check renal function daily. (4) Hypokalemia Current Visit: No Status: Acute (5) Hypertensive emergency Current Visit: Yes Status: Acute Assessment and plan: BP in ED 217/100 and 203/98 in ED. On Lisinopril 20 mg PO QD and Lopressor 12.5 mg QD. Will increase Lopressor to 25 mg QD. - Time Spent With Patient Total time spent is greater than 50% in coordination of care (as documented) at patient's floor/unit and/or counseling patient: 25 - 35 minutes
[2018-08-09] MEDS: Famotidine 20 MG TABLET PO SCH (20:25)
[2018-08-09] MEDS ORDERED: *HR* OxyCODONE/APAP 5/325 TABLET PO PRN (20:40)
[2018-08-10 07:36] LABS: Potassium 3.3 mEq/L (3.5-5.1)
[2018-08-10 07:38] LABS: Chol/HDL Ratio 4.6 (0-4.9)
[2018-08-10] MEDS: Metoprolol XL (24 HR) Succ 25 MG TAB.ER.24H PO SCH ×2 (09:01→09:02)
[2018-08-10] MEDS: Famotidine 20 MG TABLET PO SCH ×2 (09:01→20:36)
[2018-08-10] MEDS: Cholecalciferol (D-3) 1,000 UNIT TABLET PO SCH (09:02)
[2018-08-10] MEDS: Aspirin Enteric Coated 81 MG Tablet PO SCH (09:02)
--- NOTE | 2018-08-10 09:34 | Cardiology Consult Note ---
Date of Encounter: 08/10/18 Time of Encounter: 08:20 Assessment and Plan (1) Unstable angina Current Visit: Yes Status: Acute Patient reports worsening, typical chest pain symptoms over the past 2-3 weeks. Associated with poorly controlled BP. Notes similar symptoms prior to CABG. Standard stress ECG 08/07/18--nondiagnostic d/t baseline ST/T wave abnormalities ; hypertensive BP response to exercise. Troponin negative x3, chest pain free upon exam--resolved after given NTG in ED. Recommend LHC with possible PCI; alternatives, risks, and benefits discussed; he is agreeable to proceed. Aware of increased risk of TG given hx of CKD. Will start gentle IVF; hold ACEi. Continue asa, statin, BB. Keep NPO except medications. Will continue to follow. (2) CAD (coronary artery disease) Current Visit: Yes Status: Chronic Plan as above. Hx of 3vCABG in 2008. LHC 2013--stable CAD, patent 3 of 3 bypass grafts. Negative nuclear stress 2014. Standard stress ECG--nondiagnostic d/t baseline ST/T wave abnormalities. Asa, statin, BB. Qualifiers: Coronary Disease-Associated Artery/Lesion type: bypass graft [place] vs. transplanted heart: [place] heart Associated angina: with unstable angina Qualified Code(s): I25.700 - Atherosclerosis of coronary artery bypass graft(s) , unspecified, with unstable angina pectoris (3) HTN (hypertension) Current Visit: No Status: Acute Reports has been poorly controlled in the outpatient setting with SBP >200. BP upon arrival >200. Recommend conservative BP mgmt; will hold ACEi given SCr bump. Start norvasc. Qualifiers: Hypertension type: essential hypertension Qualified Code(s): I10 - Essential (primary) hypertension (4) CKD (chronic kidney disease), stage III Current Visit: No Status: Acute Hx of CKD-III, SCr 1.63 upon arrival, 1.72 today. Baseline appears to be 1.4-1.9. Hold ACEi today; start gentle IVF. Continue to monitor closely. Discussion w patient/family: The assessment and plan as outlined above was discussed with the patient and/or family members who expressed understanding and agreement. All questions were answered. Thank you for involving us in the care of your patient. Please call with any questions. The patient will be discussed and reviewed with Dr. Nadja; changes to be made accordingly. History of Present Illness Consult date: 08/10/18 Requesting physician: Maria De Jesus Fry Consult reason: Chest pain Chief complaint: Chest pain History of present illness: Mr. Kramer is a 73 year old male with PMHx significant for 3v CABG in 2008, HLD , PAD, and HTN who presented to the ED with 2-3 week complaint of intermittent chest pressure/heaviness. He notes that his BP has been poorly controlled as well over the past 2-3 weeks; PCP ordered a standard stress test to further evaluate--completed on Friday and test was non-diagnostic d/t baseline ST/T wave abnormalities. He describes chest pain and midsternal discomfort (heaviness /pressure) that radiates down left arm/hand and into left jaw. Pain seems to occur at rest and exertion. Patient reports similar symptoms prior to bypass. Pain resolved yesterday in ED when he was given SL NTG tabs. Upon arrival to ED, troponin negative x3. ECG shows no acute ST/T wave abnormality. Recent CV testing: Stress ECG 08/07/18: nondiagnostic d/t baseline ST/T wave abnormalities; hypertensive BP response TTE 03/27/16: LVEF 60%, mild LVDD, no significant valvular dysfunction, normal wall motion Nuclear stress 08/11/15: LVEF 70%, negative for ischemia or infarct [facility] 06/08/14: severe 3-v CAD, s/p 3 of 3 patent bypass grafts Past Med Surg Social Fam HX - Past Medical History Attestation: Yes The following information was validated with the patient. Source: patient Medical history: COPD, coronary artery disease, hyperlipidemia, hypertension, renal disease Psychiatric history: no psych history - Past Surgical History Surgical History: appendectomy, coronary bypass (CABG) Additional surgical history: right index finger missing. - Social History Smoking Status: Never smoker Smokeless Tobacco Status: No (former, quit 2008) Alcohol use: none Drug use: none - Family History Mother Living Status: Age at : 84 Cause of : Dementia Hx Family Cardiac Disorders: No Hx Family Respiratory Disorders: No Hx Family Cancer: No Hx Family GI Disorders: No Hx Family Genitourinary Disorders: No Hx Family Endocrine Disorder: Yes (DM) Hx Family Musculoskeletal Disorders: No Hx Family Neuromuscular Disorders: No Hx Family Neurologic Disorders: Yes (dementia) Hx Family HEENT Disorders: No Hx Family Autoimmune Disorders: No Hx Family Reproductive Disorders: No Hx Family Psychosocial Disorders: No Hx Family Medical Disorders: No Father Living Status: Age at : 66 Cause of : [place] Hx Family Cardiac Disorders: Yes (stroke) Hx Family Respiratory Disorders: No Hx Family Cancer: No Hx Family GI Disorders: No Hx Family Genitourinary Disorders: No Hx Family Endocrine Disorder: Yes (DM) Hx Family Musculoskeletal Disorders: No Hx Family Neuromuscular Disorders: No Hx Family Neurologic Disorders: No Hx Family HEENT Disorders: No Hx Family Autoimmune Disorders: No Hx Family Reproductive Disorders: No Hx Family Psychosocial Disorders: No Son Living Status: Age at : 26 Cause of : [place] Hx Family Cardiac Disorders: Yes Hx Family Respiratory Disorders: No Hx Family Cancer: No Hx Family GI Disorders: No Hx Family Genitourinary Disorders: No Hx Family Endocrine Disorder: No Hx Family Musculoskeletal Disorders: No Hx Family Neuromuscular Disorders: No Hx Family Neurologic Disorders: No Hx Family HEENT Disorders: No Hx Family Autoimmune Disorders: No Hx Family Reproductive Disorders: No Hx Family Psychosocial Disorders: No Hx Family Medical Disorders: No Medications and Allergies Doxazosin Mesylate [Cardura] 2 mg PO HS 03/07/17 [History] Cholecalciferol (D-3) [Vitamin D] 5,000 unit PO DAILY 12/26/17 [History] Lisinopril [Zestril] 20 mg PO DAILY 12/26/17 [History] Metoprolol Succinate [Toprol Xl] 12.5 mg PO DAILY 12/26/17 [History] Aspirin Enteric Coated [Aspirin EC] 81 mg PO DAILY 08/09/18 [History] OxyCODONE/APAP 5/325 [Percocet 5/325 MG] 1 each PO Q6HR PRN 08/09/18 [History] Ranitidine HCl [Acid Sheet Metal Mechanic] 150 mg PO BID 08/09/18 [History] Simvastatin [Zocor] 20 mg PO HS 08/09/18 [History] Tizanidine HCl 4 mg PO BID PRN 08/09/18 [History] 3 Allergy/AdvReac Type Severity Reaction Status Date / Time Penicillins AdvReac Hypertensio Verified 12/26/17 07:07 n All Systems Review: The remainder of the systems were reviewed and are negative - Cardiovascular Cardiovascular: as per HPI Physical Examination Vital Signs, Last 4 Hours Temp Pulse Resp BP Pulse Ox 08/10/18 06:43 98.0 F 58 15 164/85 96 General: Conversant, No Apparent Distress HEENT: Atraumatic, Normocephaly, Mucus Membranes Moist Neck: No JVD, Normal carotid pulses Cardiac: Reg Rate and Rhythm, Normal S1 and S2, No Murmur Lungs: Normal Breath Sounds, No Wheeze, Rales, Rhonchi Neuro: Alert and responsive, No focal deficits noted Abdomen: Soft, Non-Tender Skin: No rashes noted on visualized skin Musculoskeletal: No Chest Wall Tenderness Extremities: No Clubbing, No Cyanosis, No Edema, Normal Pulses Results 08/09/18 11:29 08/10/18 06:49 Lab Results 08/09/18 08/09/18 08/10/18 16:51 23:45 06:49 Sodium 140 Potassium 3.3 L Chloride 106 Carbon Dioxide 29 BUN 18 Creatinine 1.72 H Glucose 99 Calcium 9.0 Troponin I < 0.03 < 0.03 Active Medications Amlodipine Besylate (Norvasc) 10 mg PO DAILY COUNTS INCLUDE 234 BEDS AT THE [facility] PRN Reason: Protocol Stop: 02/09/19 09:46 Aspirin (Aspirin Ec) 81 mg PO DAILY COUNTS INCLUDE 234 BEDS AT THE [facility] Stop: 02/09/19 09:01 Last Admin: 08/10/18 09:02 Dose: 81 mg Doxazosin Mesylate (Cardura) 2 mg PO HS COUNTS INCLUDE 234 BEDS AT THE [facility] Stop: 02/08/19 21:01 Last Admin: 08/09/18 20:25 Dose: 2 mg Famotidine (Pepcid) 20 mg PO BID COUNTS INCLUDE 234 BEDS AT THE [facility] Stop: 02/08/19 21:01 Last Admin: 08/10/18 09:01 Dose: 20 mg Hydralazine HCl (Hydralazine) 10 mg IVP Q6HR PRN PRN Reason: Hypertension Stop: 02/08/19 18:06 Sodium Chloride (0.9 % Sodium Chloride) 1,000 mls @ 75 mls/hr IVC .[id number] COUNTS INCLUDE 234 BEDS AT THE [facility] Stop: 08/10/18 23:04 Lisinopril (Zestril) 20 mg PO DAILY COUNTS INCLUDE 234 BEDS AT THE [facility] PRN Reason: Protocol Stop: 02/09/19 09:01 Last Admin: 08/10/18 09:03 Dose: Not Given Metoprolol Succinate (Toprol Xl) 12.5 mg PO DAILY COUNTS INCLUDE 234 BEDS AT THE [facility] Stop: 02/09/19 09:01 Last Admin: 08/10/18 09:01 Dose: 12.5 mg Metoprolol Succinate (Toprol Xl) 25 mg PO DAILY COUNTS INCLUDE 234 BEDS AT THE [facility] Stop: 02/09/19 09:01 Last Admin: 08/10/18 09:02 Dose: 25 mg Naloxone HCl (Narcan) 0.4 mg IVP Q2MIN PRN PRN Reason: SEE COMMENTS Stop: 02/08/19 15:12 Nitroglycerin (Nitroglycerin) 0.4 mg SL Q5MIN PRN PRN Reason: Chest Pain Stop: 02/08/19 11:19 Last Admin: 08/09/18 11:42 Dose: 0.4 mg Oxycodone/Acetaminophen (Percocet 5/325) 1 each PO Q6HR PRN PRN Reason: Pain Stop: 02/08/19 20:41 Last Admin: 08/09/18 20:47 Dose: 1 each Potassium Chloride (Potassium Chloride) 40 meq PO DAILY PRN PRN Reason: Hypomagnesemia Stop: 02/09/19 09:01 Simvastatin (Zocor) 20 mg PO HS MAGDIEL PRN Reason: Protocol Stop: 02/08/19 21:01 Last Admin: 08/09/18 20:25 Dose: 20 mg Tizanidine HCl (Zanaflex) 4 mg PO BID PRN PRN Reason: MUSCLE SPASMS Stop: 02/08/19 15:17 Vitamin D (Vitamin D) 1,000 unit PO DAILY COUNTS INCLUDE 234 BEDS AT THE [facility] Stop: 02/09/19 09:01 Last Admin: 08/10/18 09:02 Dose: 1,000 unit - Imaging and Cardiology Stress Test: report reviewed Echo: report reviewed Cardiac cath: report reviewed Other Results: 12 hour tele: avg HR=58 SB/SR. - EKG Interpretation EKG results cardiology: personally reviewed Consult Discharge Plan - Plan Referrals: Su Lanier [Primary Care Provider] -
[2018-08-10] MEDS ORDERED: 0.9 % Sodium Chloride 1,000 ML IVC SCH (09:45)
[2018-08-10] MEDS: amLODIPine 5 MG TABLET PO SCH (11:48)
--- NOTE | 2018-08-10 13:18 | Pre-Sedation Evaluation ---
Pre-sedation evaluation - Pre-sedation checklist Date of procedure: 08/10/18 Procedure: [facility] Recent Vitals: Last Vital Signs Temp 98.2 F 08/10/18 11:15 Pulse 71 08/10/18 11:15 Resp 16 08/10/18 11:15 BP 174/92 08/10/18 11:15 Pulse Ox 98 08/10/18 11:15 Previous reaction to sedatives/anesthetics: No Dietary Status: NPO after Midnight Airway Assessment: Patient can open mouth completely, TMJ function normal ASA Classification *see protocol: CLASS II-Mild systemic disease Plan of Care: Pt appropriate candidate for procedure/moderate/conscious sedation , Risks/benefits of procedure/sedation discussed w/ patient/family Cardiac Registry (Cardio Only) - Functional Capacity Functional Capacity: >=4 METS with symptoms - Clincal Frailty Scale Clinical Frailty Scale: Managing Well
[2018-08-10] MEDS ORDERED: Heparin 1,000 UNITS/500 mL 500 ML ONE (14:35)
[2018-08-10] MEDS ORDERED: 0.9 % Sodium Chloride 2,000 ML ONE (14:35)
[2018-08-10] MEDS ORDERED: ISOVUE-370 200 ML INFUS..BTL IV ONE (14:35)
[2018-08-10] MEDS ORDERED: *HR* Heparin 10,000 UNIT/10 ML VIAL ONE (14:35)
[2018-08-10] MEDS ORDERED: Nitroglycerin 1,000 MCG/10 ML VIAL IV ONE (14:36)
[2018-08-10] MEDS ORDERED: *HR* FentaNYL (PF) 100 MCG/2 ML VIAL ONE (14:57)
[2018-08-10] MEDS ORDERED: *HR* Midazolam HCl 2 MG/2 ML VIAL ONE ×2 (14:57→15:04)
--- NOTE | 2018-08-10 15:50 | Invasive Diagnostic Lab Proc ---
Name: Jeffery Kramer Date of Study: 08/10/2018 Date: 1945 Ht: 66.1in Medical Record#: [id number] Age: 73 Wt: 185.41lb Gender: Male BSA: 1.94 Order #: [id number] BMI: 29.83 Physicians Procedure Physician: Ebenezer Roger MD, [facility] Referring MD: Referring MD: Staff Name Position Time In Vanesa Herman RT (R) Monitor 02:57 PM Vanesa Jaffe RT (R) Scrub 02:57 PM Gael Cesar RN Technical Engineer 02:57 PM Aretha Shaw RN Technical Engineer 02:58 PM Khadijah Gold RN Technical Engineer 03:27 PM Indications Indication Unstable Angina Procedures Performed Procedure L HRT ART/GRFT ANGIO Pre-Procedure Checklist Informed consent is complete signed and on chart. H&P is on chart. ID band is on and ID verified with patient. Patient NPO for procedure The procedure was described for the patient and questions were answered. ECG is on chart. Plan of Care Patient will tolerate the procedure without complications. Adequate level of comfort will be maintained. Hemodynamics will remain stable Patient will recover from procedure without complications. Respiratory function will be maintained. Cardiac rhythm will remain stable. Patient temperature will be maintained. Patient and/or family have verbalized understanding of the procedure. Patient Education Chief Complaint/Reason for Test: Cardiac Cath Developmental Category: Adult (18-64 years) Developmentally Appropriate for Age: Yes Learning Barriers: None Education Needs: Procedure Education Method: Verbal Information Taught: Cardiac Cath Educational Evaluation: Able to repeat information Intravenous Access Time IV Size Location DC'd Fluid/Drip Rate Units RN 02:48 PM 18g 1 1/" Peripheral-Lock On Arrival Rt Wrist 0.9NaCl 25 ml/hr Aretha Shaw RN Allergies Penicillins Vital Signs Time BP (mmHg) HR (bpm) O2 Sat. RR (bpm) LOC 02:58 PM / % 5 = Fully awake and oriented or at pre-proc level 02:58 PM / % 4 = Oriented but drowsy 02:56 PM 210 / 103 60 100 % 19 03:00 PM 182 / 99 58 100 % 9 03:06 PM 186 / 94 59 100 % 16 03:11 PM 177 / 92 57 100 % 16 03:15 PM 174 / 97 67 100 % 16 03:20 PM 189 / 92 67 100 % 14 03:25 PM 183 / 91 65 100 % 34 03:30 PM 150 / 88 63 98 % 12 Procedural Medications Time Medication Dose Units Method Given By 02:58 PM Oxygen 2 L/min nasal cannula Aretha Shaw RN 03:05 PM Versed 2 mg Intravenous Aretha Shaw RN 03:05 PM Fentanyl 50 mcg Intravenous Aretha Shaw RN 03:11 PM Lidocaine 2% 20 ml Subcutaneous Ebenezer Roger MD, FACC 03:26 PM Hydralazine 10 mg Intravenous Aretha Shaw RN ASA Classification: CLASS II- Mild systemic disease (i.e. well-controlled diabetes, hypertension, asthma, cigarette smoking) Yue Score Preprocedure Postprocedure Activity 2- Moves 4 extremities sustained head lift Activity 2- Moves 4 extremities sustained head lift Circulation 2- SBP +/= 20 points of pre-anesthetic level Circulation 2- SBP +/= 20 points of pre-anesthetic level Consciousness 2- Awake and alert oriented x 3 Consciousness 2- Awake and alert oriented x 3 O2 Saturation 2- Able to maintain O2 satruation of 92% on room air O2 Saturation 2- Able to maintain O2 satruation of 92% on room air Respiratory 2- Able to deep breathe and cough well Respiratory 2- Able to deep breathe and cough well Total Score 10 Total Score 10 Contrast Agent: Isovue Diagnostic Contrast: 37 ml Total Contrast: 37 ml Fluoro Dose: 2202 mGy Procedure Log Time Note Enter By 02:48 PM Pt arrived to medical laboratory manager 2 at 14:48 twilson 02:51 PM Physician arrived 14:51 twilson 02:51 PM Meet and greet completed 02:51 PM Sign in performed according to hospital policy. tw 02:51 PM Procedure start 14:51 twilson 02:51 PM Patient charges- Angio tray pack, Navilyst 3mm J, Pulse Oximetry and ACIST tubing and transducer twilson 02:51 PM CathStat 02:54 PM Vitals capture started with the following parameters, Patient=Adult, Interval=5 min, Initial Thtjadpm=548 mmHg, Deflation Rate=5 mmHg, Cuff placed on Right Arm 02:56 PM HR=60 bpm, PAVO=686/103 mmhg, NwA6=655.0 %, Resp=19 B/min 02:57 PM Vanesa Herman RT (R) Position: Monitor Time in: 14:57 twilson 02:57 PM Vanesa Jaffe (R) Position: Scrub Time in: : twilson 02:58 PM Gael Cesar RN Position: Technical Engineer Time in: : twilson 58 PM Aretha Shaw RN Position: Technical Engineer Time in: : twilson PM Time: 14:58 Oxygen on at 2 L/min per nasal cannula by Aretha Shaw RN twilson PM Time: 14:58 Patient comfortable and pain free: Yes twilson PM Time: 14:58LOC: 5 = Fully awake and oriented or at pre-proc level twilson 03:00 PM HR=58 bpm, NAVY=674/99 mmhg, WtF7=046.0 %, Resp=9 B/min 03:02 PM ASA Class CLASS II- Mild systemic disease (i.e. well-controlled diabetes, hypertension, asthma, cigarette smoking) twilson 03:02 PM Case Delayed no twilson 03:02 PM Hair removed from procedure site in procedure lab using clippers. Bilateral groin prepped with Chloraprep by Vanesa Herman (R), then patient was draped. Skin intact. twilson 03:03 PM Recorded ECG: HR=59 Condition=Condition 1 03:03 PM Pressure channel 1 zeroed. 03:05 PM Time: 15:05 Versed 2 mg Intravenous Given by Aretha Shaw RN twilson 03:05 PM Time: 15:05 Fentanyl 50 mcg Intravenous Given by Aretha Shaw RN twilson 03:06 PM HR=59 bpm, TYUR=468/94 mmhg, KaH4=367.0 %, Resp=16 B/min 03:10 PM Time out performed according to hospital policy twilson 03:11 PM HR=57 bpm, UKBC=690/92 mmhg, YlG6=180.0 %, Resp=16 B/min 03:11 PM Time: 15:11 20 ml Lidocaine 2% to right groin Subcutaneous Given by Ebenezer Roger MD, [facility] twilson 03:12 PM Pressure channel 1 zeroed. 03:12 PM Access obtained by percutaneous puncture. 5Fr 10cm Terumo [place] sheath placed in right Femoral artery. [id number] twilson 03:13 PM 5Fr FL 4 catheter inserted over the wire DNC twilson 03:13 PM Wire removed twilson 03:13 PM Recorded Pressure: Ao, HR=60, Condition=Condition 1 (Aorta) Ao 169/86/121 03:13 PM Time: 14:58LOC: 4 = Oriented but drowsy twilson 03:13 PM Time: 14:58 Patient comfortable and pain free: twilson 03:14 PM LCA angiography performed in multiple views. twilson 03:14 PM Recorded Pressure: Ao, HR=67, Condition=Condition 1 (Aorta) Ao 165/87/123 03:15 PM Lesion found in Mid Circumflex. Pre Stenosis: 50 Pre BETO Flow: twilson 03:15 PM HR=67 bpm, OPQX=679/97 mmhg, HgD4=413.0 %, Resp=16 B/min 03:15 PM Circumflex, Obtuse Marginal, Left Posterior Descending, and Left Posterolateral Coronary Arteries with 50 % stenosis. If graft is supplying this area, 0 % stenosis twilson 03:15 PM Wire reisnerted. twilson 03:16 PM Catheter removed twilson 03:16 PM 5Fr FR 4 catheter inserted over the wire [facility] twilson 03:16 PM Wire removed twilson 03:16 PM Recorded Pressure: Ao, HR=71, Condition=Condition 1 (Aorta) Ao 159/100/128 03:16 PM Lesion found in Mid RCA. Pre Stenosis: 99 Pre BETO Flow: twilson 03:17 PM SVG to the 1st and 2nd OM angio performed in multiple views. twilson 03:17 PM Recorded Pressure: Ao, HR=70, Condition=Condition 1 (Aorta) Ao 165/100/131 03:19 PM Wire reinserted. twilson 03:19 PM Catheter removed twilson 03:20 PM 5Fr IM catheter inserted over the wire [id number] twilson 03:20 PM HR=67 bpm, FAJM=199/92 mmhg, HqY9=625.0 %, Resp=14 B/min 03:20 PM 0.035 260cm Navilyst 3mmJ wire [id number] twilson 03:20 PM Wire removed twilson 03:21 PM Left JESSY to the LAD angio performed in multiple views. twilson 03:21 PM Wire reinserted. twilson 03:21 PM Catheter removed twilson 03:22 PM 5Fr Pigtail catheter inserted over the wire [facility] twilson 03:22 PM Catheter selectively placed in left ventricle twilson 03:23 PM Wire removed twilson 03: PM Recorded Pressure: LV, HR=87, Condition=Condition 1 (Left Ventricle) LV 173/20/38 03:23 PM Recorded Pressure: LV, Ao, HR=65, Condition=Condition 1 (Left Ventricle) LV 179/-4/11, (Aorta) Ao 185/83/124 03:24 PM No LV injection. Pressures only. twilson 03:24 PM Coronary Dominance: Left twilson 03:24 PM Bolus angiogram of right Femoral complete: 4 ml/sec for a total of 7 mls twilson 03:25 PM Wire reinserted. twilson 03:25 PM Wire and catheter removed, intact. twilson 03: PM HR=65 bpm, QLPO=315/91 mmhg, AiW0=806.0 %, Resp=34 B/min 03:25 PM Procedure completed at 15:25 08/10/2018 twilson 03: PM Did you address BETO flow and Dominance? Yes twilson 03: PM Sign out completed: Radiation Dose 179.71 mGy, 2202.03 cGy/cm2 Fluoro Time: 2.5 Isovue 370 - 200ml contrast 37.4 ml given by Ebenezer Roger MD, [facility]. Complications: NoneCardiac Rehab Consult needed: NoConfirmed administered medications: Yes tw: PM Time: 15:26 Hydralazine 10 mg Intravenous Given by Aretha Shaw RN twilson 03: PM Isovue 370 - 200ml,1 Bottle(s) used. twilson 03:28 PM Arterial sheath pulled, Mynx closure device used and was Successful S/N. twilson : PM Estimated Blood Loss: minimal twilson 03:28 PM Post ECG NSR twilson 03: PM Post Blood Pressure 183/91 twilson 03: PM 15:28 Post Pulses Bilateral DP & PT 1+ twilson 03:28 PM 15:28 Post Pulses Bilateral radial 2+ twilson 03:29 PM Information taught Cardiac Cath and Mynx twilson 03:29 PM Education needs Procedure, Plan of Care, and Responsibilities of Patient in Care twilson 03:29 PM Learning barriers :None twilson 03:29 PM Education Methods Verbal twilson 03:29 PM Education evaluation Able to repeat information twilson 03:29 PM Site status No bleeding/hematoma - Rt Groin as reported by Sites, Vanesa RT (R) at 15:29 twilson 03:29 PM Opsite applied twilson 03:30 PM HR=63 bpm, DBHG=299/88 mmhg, SpO2=98.0 %, Resp=12 B/min 03:32 PM Family placed in consult room. twilson 03:32 PM Right Coronary, Right Posterior Descending Arteries with Right Posterolateral and Acute Marginal branches with 99 % stenosis. If graft is supplying this area, 0 % stenosis twilson 03:33 PM Lesion found in Proximal LAD. Pre Stenosis: 100 Pre BETO Flow: twilson 03:33 PM Proximal Left Anterior Descending Coronary Artery with 100% stenosis. If graft is supplying this territory, 0 % stenosis. twilson 03:41 PM Report given to Lynnette DIAZ Pt taken to 3B Room #53. 15:40 twilson 03:41 PM Delay to floor No twilson 03:41 PM Patient out of room: 15:41 twilson Complications Complication None Hemodynamics Pressures Site Systolic/A Wave Diastolic/V Wave Mean AO 169 86 121 AO 165 87 123 AO 159 100 128 AO 165 100 131 LV 173 20 38 LV 179 -4 11 AO 185 83 124 Post Procedure Information Blood Pressure: 183/91 mmHg Rhythm: NSR Post procedural instructions were given Closure Device Time Device Success/Fail 08/10/2018 3:31:00 PM MynxGrip Successful Site Checks Time Location Status Staff Sheath In? Note 03:29 PM Rt Groin No bleeding/hematoma Sites, Vanesa RT (R) Pulses Time Site Pre-Procedure Post-Procedure Note 08/10/2018 2:48:00 PM Bilateral DP & PT 1+ 08/10/2018 2:48:00 PM Bilateral radial 2+ 3:28:00 PM Bilateral DP & PT 1+ 3:28:00 PM Bilateral radial 2+ Updated by Vanesa Herman RT (R) on 08/10/2018 3:42:57 PM electronically signed on 08/10/2018 3:44:10 PM with status of Final
--- NOTE | 2018-08-10 17:21 | Electrocardiograph Report ---
[place] [address] Test Date: 2018-08-09 Pat Name: Jeffery Kramer Department: EXAM14 Room: [facility] Gender: M Pie Maker: : 1945 Requested By: Rakan Chaney Order Number: [id number] Reading MD: Mary Lou Fay Measurements Intervals [place] Rate: 60 P: 39 OR: 176 QRS: 10 QRSD: 98 T: 14 QT: 455 QTc: 455 Interpretive Statements Sinus rhythm Borderline repolarization abnormality Electronically Signed On 08-10-2018 17:20:09 EDT by Mary Lou Fay
--- NOTE | 2018-08-10 18:30 | Internal Med Progress Note ---
Hospitalist Progress Note - Encounter Date of Encounter: 08/10/18 Time of Encounter: 18:28 - Subjective Interval History: Pt denies CP ro SOB. BP better controlled today. Denies fever, chills, N/V or diarrhea. - Exam Vitals: Temp Pulse Resp BP Pulse Ox 98.2 F 69 16 152/77 97 08/10/18 11:15 08/10/18 17:35 08/10/18 11:15 08/10/18 17:35 08/10/18 17:35 Exam: . - Assessment and Plan (1) Chest pain Current Visit: Yes Status: Acute Assessment and Plan: ? unstable angina vs uncontrolled HTN. Pt is s/p 3V CBAG. Troponin neg x 3. Pt recently had stress test 08/07/2018. Pt states he does not currently ahve a primary ultrasonic seaming machine operator and had been set up on an appointment to see one this upcoming Fri08/14/2018. He denies CP at this time. States his BP was 200/ 105 at home. States this is similar to event he had prior to CABG. Will consulted cardiology and he is s/p LHC via groin final read is pending and will need overnight monitoring per cardiology. BP better controlled. Stress test done 08/07/18 Impressions: Stress ECG was indeterminate for ischemia due to baseline ST abnormalities. Hypertensive blood pressure response to exercise. Test terminated due to dyspnea. No complaints of chest pain. (2) CAD (coronary artery disease) Current Visit: Yes Status: Chronic Assessment and Plan: Seen by cardiology. Hx of 3vCABG in 2008. [facility] 2013--stable CAD, patent 3 of 3 bypass grafts. Negative nuclear stress 2014. Standard stress ECG--non diagnostic d/t baseline ST/T wave abnormalities. ASA, statin, and BB. (3) CKD (chronic kidney disease), stage III Current Visit: No Status: Acute Assessment and Plan: Will check renal function daily. (4) Hypokalemia Current Visit: No Status: Acute Assessment and Plan: Will give PO supplement and recheck in am. (5) Hypertensive emergency Current Visit: Yes Status: Acute Assessment and Plan: BP in ED 217/100 and 203/98 in ED. On Lisinopril 20 mg PO QD and Lopressor 12.5 mg QD. Increased Lopressor to 25 mg QD and blood pressure improved. DVT Prophylaxis: Heparin - Summary of Assessment and Plan Summary of Assessment and Plan: Mr. Kramer is a 73 year old male with past medical history of quadruple bypass , hypertension presents to the emergency department with CP. Pt states he developed left-sided chest pain that is pressure-like while he was showering. Pain started approximately 3 hours prior to arrival to ED, was constant, worse with exertion, and associated with dyspnea. Pain does radiate into his left arm , neck or jaw. He reports SOB and diaphoresis but denies nausea. The patient states that he had similar pain a week ago. He had stress test done at [facility] this past Friday which was read as indeterminate. He was made an appointment with a ultrasonic seaming machine operator for 08/14/2017 at discharge. Pain relieved by Nitro. Pain Scale: 7 in ED. Troponin <0.03. EKG SR with VR 60. Chest X-Ray 08/09/18 11:04 IMPRESSION: No acute finding or interval change. - Time Spent with Patient Total time spent is greater than 50% in coordination of care (as documented) at patient's floor/unit and/or counseling patient: less than 15 minutes Plan of Care Discussed with: patient Internal Medicine: Result - Labs CBC & Chem 7: 08/09/18 11:29 08/10/18 06:49 Labs: BMP 08/10/18 06:49 Sodium 140 Potassium 3.3 L Chloride 106 Carbon Dioxide 29 BUN 18 Creatinine 1.72 H Glucose 99 Calcium 9.0 Cardiac Enzymes 08/09/18 08/10/18 Range/Units 23:45 06:49 Troponin I < 0.03 < 0.03 (< 0.04) ng/mL - ABG Interpretation ABG results: PT/INR, D-dimer PT 11.4 Seconds (9.4-12.1) 08/09/18 11:29 Consult Discharge Plan - Plan Referrals: Su Lanier [Primary Care Provider] - (1) Chest pain Qualifiers: Qualified Code(s): R07.9 - Chest pain, unspecified (2) CAD (coronary artery disease) Qualifiers: Coronary Disease-Associated Artery/Lesion type: bypass graft [place] vs. transplanted heart: [place] heart Associated angina: with unstable angina Qualified Code(s): I25.700 - Atherosclerosis of coronary artery bypass graft(s) , unspecified, with unstable angina pectoris
[2018-08-11] MEDS ORDERED: *HR* Heparin 5,000 UNIT/ML VIAL SQ SCH (06:00)
[2018-08-11 06:19] LABS: Potassium 3.5 mEq/L (3.5-5.1)
[2018-08-11] MEDS: amLODIPine 5 MG TABLET PO SCH (08:42)
[2018-08-11] MEDS: Famotidine 20 MG TABLET PO SCH (08:42)
[2018-08-11] MEDS: Metoprolol XL (24 HR) Succ 25 MG TAB.ER.24H PO SCH ×2 (08:42→08:43)
[2018-08-11] MEDS: Aspirin Enteric Coated 81 MG Tablet PO SCH (08:42)
[2018-08-11] MEDS: Cholecalciferol (D-3) 1,000 UNIT TABLET PO SCH (08:43)
--- NOTE | 2018-08-11 11:05 | Cardiology Progress Note ---
Date of Encounter: 08/11/18 Time of Encounter: 10:15 Assessment and Plan (1) Unstable angina Current Visit: Yes Status: Acute Patient reports worsening, typical chest pain symptoms over the past 2-3 weeks. Likely due to uncontrolled b/p. Standard stress ECG 08/07/18--nondiagnostic d/t baseline ST/T wave abnormalities ; hypertensive BP response to exercise. LHC completed and showed 3/3 patent bypass grafts. No intervention. Kidney function is stable. Continue asa, statin and bb. Notes he is taking bb every other day. Recommend daily dosing. (2) CAD (coronary artery disease) Current Visit: Yes Status: Chronic Plan as above. Hx of 3vCABG in 2008. LHC shows 3/3 patent bypass grafts. Asa, statin, BB. Qualifiers: Coronary Disease-Associated Artery/Lesion type: bypass graft [place] vs. transplanted heart: [place] heart Associated angina: with unstable angina Qualified Code(s): I25.700 - Atherosclerosis of coronary artery bypass graft(s) , unspecified, with unstable angina pectoris (3) HTN (hypertension) Current Visit: No Status: Acute Reports has been poorly controlled in the outpatient setting with SBP >200. BP upon arrival >200. ACEi held yesterday given SCr bump and now restarted today. Norvasc 10 mg started. States that he was taking toprol every other day at home due to low HR. AVg HR in last 24 hours was 77 bpm. No bradycardia seen. Recommend daily beta-sugar as he is doing here. Low sodium diet stressed. Qualifiers: Hypertension type: essential hypertension Qualified Code(s): I10 - Essential (primary) hypertension Discussion w patient/family: The assessment and plan as outlined above was discussed with the patient and/or family members who expressed understanding and agreement. All questions were answered. Thank you for involving us in the care of your patient. Please call with any questions. Subjective Principal diagnosis: Chest pain, abnormal b/p response on stress, HTN Interval history: Mr. Kramer is s/p LHC via right femoral access. Denies chest pain or SOB overnight. No problem noted with right femoral access site. Objective Vital Signs, Last 4 Hours Temp Pulse Resp BP Pulse Ox 08/11/18 08:15 98.3 F 66 18 152/79 97 General: Conversant, No Apparent Distress HEENT: Atraumatic, Normocephaly, Mucus Membranes Moist Neck: No JVD, Normal carotid pulses Cardiac: Reg Rate and Rhythm, Normal S1 and S2, No Murmur Lungs: Normal Breath Sounds, No Wheeze, Rales, Rhonchi Neuro: Alert and responsive, No focal deficits noted Abdomen: Soft, Non-Tender Skin: No rashes noted on visualized skin Musculoskeletal: No Chest Wall Tenderness Extremities: No Clubbing, No Cyanosis, No Edema, Normal Pulses, Other (Right femoral dressing removed. Small amount ecchymosis) Results 08/09/18 11:29 08/11/18 04:56 Lab Results 08/10/18 08/11/18 06:49 04:56 Sodium 141 Potassium 3.5 Chloride 109 H Carbon Dioxide 24 BUN 18 Creatinine 1.52 H Glucose 98 Calcium 9.0 Troponin I < 0.03 - Imaging and Cardiology Echo: report reviewed - EKG Interpretation EKG results cardiology: personally reviewed Consult Discharge Plan - Plan Referrals: Su Lanier [Primary Care Provider] -
[2018-08-11 11:50] VITALS: BP 184/96
--- NOTE | 2018-08-11 13:41 | Discharge Summary ---
Date of Encounter: 08/11/18 Time of Encounter: 11:20 - Discharge Diagnosis (1) Chest pain Priority: Secondary Status: Acute Assessment and Plan: Cardiology has evaluated patient and signed off. Patient denies chest pain today. Troponins negative 3, stress test on 08/07/18. [facility] yesterday. She is 3/3 patent bypass grafts and no new interventions. Continue aspirin, statin, beta sugar. Per cardiology note, patient is taking beta sugar every other day, they have discussed daily dosing. Follow-up with cardiology. Qualifiers: Qualified Code(s): R07.9 - Chest pain, unspecified (2) Hypertensive emergency Priority: Secondary Status: Acute Assessment and Plan: BP in the emergency department 217/100. Continue Linsiopril 20mg po daily and Lopressor is increased to 25mg po daily Blood pressure controlled. Continue home medications. (3) CAD (coronary artery disease) Priority: Primary () Status: Chronic Assessment and Plan: Continue home medications. Qualifiers: Coronary Disease-Associated Artery/Lesion type: bypass graft [place] vs. transplanted heart: [place] heart Associated angina: with unstable angina Qualified Code(s): I25.700 - Atherosclerosis of coronary artery bypass graft(s) , unspecified, with unstable angina pectoris (4) Acute exacerbation of chronic obstructive airways disease Priority: Secondary Status: Acute Assessment and Plan: No acute exacerbation. Lungs clear, diminished. Continue home medications. Pt on room air. (5) CKD (chronic kidney disease), stage III Priority: Secondary Status: Chronic Assessment and Plan: Pt is baseline renal function. Avoid nephrotoxins. (6) DVT prophylaxis Priority: Secondary Status: Acute Assessment and Plan: Heparin SQ Hospital course: Please see assessment and plan for hospital course. Discharge discussed with: patient, nurse - Time Spent with Patient Total time spent providing and/or coordinating discharge services: Less than 30 minutes - Discharge Medications Home Medications: Doxazosin Mesylate [Cardura] 2 mg PO HS 03/07/17 [History] Cholecalciferol (D-3) [Vitamin D] 5,000 unit PO DAILY 12/26/17 [History] Lisinopril [Zestril] 20 mg PO DAILY 12/26/17 [History] Metoprolol Succinate [Toprol Xl] 12.5 mg PO DAILY 12/26/17 [History] Aspirin Enteric Coated [Aspirin EC] 81 mg PO DAILY 08/09/18 [History] OxyCODONE/APAP 5/325 [Percocet 5/325 MG] 1 each PO Q6HR PRN 08/09/18 [History] Ranitidine HCl [Acid Undercutter Operator] 150 mg PO BID 08/09/18 [History] Simvastatin [Zocor] 20 mg PO HS 08/09/18 [History] Tizanidine HCl 4 mg PO BID PRN 08/09/18 [History] amLODIPine [Norvasc] 10 mg PO DAILY tablet 08/11/18 [Rx] Allergies/Adverse Reactions: 3 Allergy/AdvReac Type Severity Reaction Status Date / Time Penicillins AdvReac Hypertensio Verified 12/26/17 07:07 n Date of admission: 08/09/18 13:19 Primary care physician: Su Lanier Consults: 08/09/18 18:11 Consult to Cardiology [CONS] Routine Comment: Consulting Provider: Cardiology [place] Reason for Consult: ? untsable angina Call Completed: No 08/10/18 18:35 Consult to Nephrology [CONS] Routine Consulting Provider: Kidney Rivka/NATHEN/JERSEY/ERIKA Reason for Consult: CKD. Call Completed: Yes Discharging clinician: Annie Ward - Constitutional Vitals: Temp Pulse Resp BP Pulse Ox 98.0 F 81 19 184/96 97 08/11/18 11:48 08/11/18 11:48 08/11/18 11:48 08/11/18 11:48 08/11/18 11:48 General appearance: Present: cooperative, A&O X 3, pleasant, no acute distress, answers questions appropriately Exam: As above - Head Head exam: Present: atraumatic, normal inspection, normocephalic - Eye Eye exam: Present: EOMI, normal appearance, PERRL, conjuntiva pink, sclera anicteric. Absent: nystagmus Pupils: Present: PERRL - Neck Neck exam general surgery: Present: supple, trachea midline. Absent: lymphadenopathy, tenderness - Respiratory Respiratory exam: Present: CTAB. Absent: accessory muscle use, rales, respiratory distress, rhonchi, wheezes - Cardiovascular Cardiovascular exam: Present: RRR, +S1, +S2. Absent: bradycardia, diastolic murmur, gallop, rubs, systolic murmur, tachycardia - GI/Abdominal GI/Abdominal exam: Present: normal bowel sounds, soft. Absent: distended, hepatomegaly, tenderness - Extremities Exam Extremities exam: Present: normal capillary refill, normal inspection, warm, radial pulses palpable and symmetrical. Absent: calf tenderness, cyanotic, pedal edema, tenderness - Neurological Exam Neurological exam: Present: alert, oriented X3, no focal deficits, pronater drift. Absent: facial droop, speech deficit - Skin Skin exam: Present: dry, intact, warm. Absent: rash - Patient Status Disposition: Home, Self-Care Condition: Good Functional capacity at discharge: independent ambulation Overall status at discharge: patient is progressing back to baseline - Discharge Instructions Follow Up With: Su Lanier [Primary Care Provider] - Additional Instructions: Follow up with your PCP in the next 3-5 days for a recheck. Take your medications as directed. Return to the ER as needed for any other problems or concerns, or if your symptoms return or worsen. Resume your normal medications and return to your normal diet and activties as tolerated. - Diet and Activity Activity: increase activity as tolerated Diet: advance to your usual diet
== END 2018-08-11 15:25 | disposition home or self-care (01) ==
LOC: 3BNU 10:54 → EMEROOARM 10:54 → 3BNU 14:37
PROVIDERS: ADMIT Internal Medicine; ATTEND Internal Medicine